=== PATIENT | male | born 1990 | race Caucasian/White ===

== ENCOUNTER 2016-12-24 03:12 | Emergency (ER) | payer BC ==
[2016-12-24] MEDS ORDERED: ACETAMINOPHEN TAB 500 MG TAB PO STA (03:22)
[2016-12-24] MEDS ORDERED: IBUPROFEN 600 MG TAB PO STA (03:22)
--- NOTE | 2016-12-24 03:25 | ED ---
General Adult HPI - General Chief complaint: Fever Stated complaint: shaky Time Seen by Provider: 12/24/16 03:19 Source: patient, EMS, RN notes reviewed Mode of arrival: EMS Limitations: no limitations - History of Present Illness Initial comments: Patient is a pleasant 26-year-old male presenting to the emergency department for feeling shaky. Onset of symptoms was just around 40 minutes ago. Patient states he just doesn't feel right. No history of similar symptoms previously. No rhinorrhea. Patient questions if he may have minimal sore throat. No cough. No abdominal pain. No dysuria. - Related Data Allergies Allergy/AdvReac Type Severity Reaction Status Date / Time No Known Allergies Allergy Verified 12/24/16 03:18 Review of Systems ROS Statement: Those systems with pertinent positive or pertinent negative responses have been documented in the HPI. ROS Other: All systems not noted in ROS Statement are negative. Constitutional: Reports: chills Eyes: Denies: eye pain ENT: Denies: ear pain Respiratory: Denies: cough Cardiovascular: Denies: chest pain Endocrine: Denies: fatigue Gastrointestinal: Denies: abdominal pain Genitourinary: Denies: urgency Musculoskeletal: Denies: back pain Skin: Denies: rash Neurological: Denies: weakness Past Medical History Past Medical History: No Reported History History of Any Multi-Drug Resistant Organisms: None Reported Past Surgical History: No Surgical Hx Reported Past Psychological History: No Psychological Hx Reported Smoking Status: Current every day smoker Past Alcohol Use History: Occasional Past Drug Use History: Marijuana General Exam Limitations: no limitations General appearance: alert, in no apparent distress Head exam: Present: atraumatic Eye exam: Present: normal appearance, PERRL ENT exam: Present: normal oropharynx Neck exam: Present: normal inspection Respiratory exam: Present: normal lung sounds bilaterally Cardiovascular Exam: Present: regular rate, normal rhythm GI/Abdominal exam: Present: soft. Absent: tenderness Extremities exam: Present: normal inspection Neurological exam: Present: alert Psychiatric exam: Present: normal affect, normal mood Skin exam: Absent: rash Course Vital Signs 12/24/16 03:15 Temperature 100.2 F H Pulse Rate 124 H Respiratory 20 Rate Blood Pressure 160/91 O2 Sat by Pulse 98 Oximetry EKG Findings - EKG Comments: EKG Findings:: Sinus tachycardia at 114. OR 178. QRS 94. QT 320. QTc 452. Normal axis. Normal QRS. No acute ST change. Medical Decision Making - Medical Decision Making Patient reexamined and resting comfortably in bed. Patient is symptom-free. Patient updated on results and need for follow-up. - Lab Data Result diagrams: 12/24/16 03:25 12/24/16 03:25 Lab Results 12/24/16 12/24/16 12/24/16 Range/Units 03:25 03:25 03:25 WBC 10.1 (3.8-10.6) k/uL RBC 4.84 (4.30-5.90) m/uL Hgb 15.3 (13.0-17.5) gm/dL Hct 42.7 (39.0-53.0) % MCV 88.2 (80.0-100.0) fL MCH 31.5 (25.0-35.0) pg MCHC 35.8 (31.0-37.0) g/dL RDW 13.3 (11.5-15.5) % Plt Count 193 (150-450) k/uL Neutrophils % 78 % Lymphocytes % 13 % Monocytes % 6 % Eosinophils % 1 % Basophils % 1 % Neutrophils # 7.8 H (1.3-7.7) k/uL Lymphocytes # 1.3 (1.0-4.8) k/uL Monocytes # 0.6 (0-1.0) k/uL Eosinophils # 0.1 (0-0.7) k/uL Basophils # 0.1 (0-0.2) k/uL PT (9.0-12.0) sec INR (<1.1) APTT (22.0-30.0) sec Sodium 138 (137-145) mmol/L Potassium 3.8 (3.5-5.1) mmol/L Chloride 104 (98-107) mmol/L Carbon Dioxide 23 (22-30) mmol/L Anion Gap 11 mmol/L BUN 16 (9-20) mg/dL Creatinine 0.90 (0.66-1.25) mg/dL Est GFR (MDRD) Af Amer >60 (>60 ml/min/1.73 sqM) Est GFR (MDRD) Non-Af >60 (>60 ml/min/1.73 sqM) Glucose 118 H (74-99) mg/dL Plasma Lactic Acid German (0.7-2.0) mmol/L Calcium 9.3 (8.4-10.2) mg/dL Total Bilirubin 0.5 (0.2-1.3) mg/dL AST 47 (17-59) U/L ALT 65 (21-72) U/L Alkaline Phosphatase 80 (38-126) U/L Total Protein 6.9 (6.3-8.2) g/dL Albumin 4.4 (3.5-5.0) g/dL Urine Color Urine Appearance (Clear) Urine pH (5.0-8.0) Ur Specific Noble (1.001-1.035) Urine Protein (Negative) Urine Glucose (UA) (Negative) Urine Ketones (Negative) Urine Blood (Negative) Urine Nitrite (Negative) Urine Bilirubin (Negative) Urine Urobilinogen (<2.0) mg/dL Ur Leukocyte Esterase (Negative) Urine Opiates Screen (NotDetected) Ur Oxycodone Screen (NotDetected) Urine Methadone Screen (NotDetected) Ur Propoxyphene Screen (NotDetected) Ur Barbiturates Screen (NotDetected) U Tricyclic Antidepress (NotDetected) Ur Phencyclidine Scrn (NotDetected) Ur Amphetamines Screen (NotDetected) U Methamphetamines Scrn (NotDetected) U Benzodiazepines Scrn (NotDetected) Urine Cocaine Screen (NotDetected) U Marijuana (THC) Screen (NotDetected) Influenza Type A RNA Not Detected (Not Detectd) Influenza Type B (PCR) Not Detected (Not Detectd) Group A Strep Rapid (Negative) 12/24/16 12/24/16 12/24/16 Range/Units 03:25 03:25 03:25 WBC (3.8-10.6) k/uL RBC (4.30-5.90) m/uL Hgb (13.0-17.5) gm/dL Hct (39.0-53.0) % MCV (80.0-100.0) fL MCH (25.0-35.0) pg MCHC (31.0-37.0) g/dL RDW (11.5-15.5) % Plt Count (150-450) k/uL Neutrophils % % Lymphocytes % % Monocytes % % Eosinophils % % Basophils % % Neutrophils # (1.3-7.7) k/uL Lymphocytes # (1.0-4.8) k/uL Monocytes # (0-1.0) k/uL Eosinophils # (0-0.7) k/uL Basophils # (0-0.2) k/uL PT 10.8 (9.0-12.0) sec INR 1.1 (<1.1) APTT 22.2 (22.0-30.0) sec Sodium (137-145) mmol/L Potassium (3.5-5.1) mmol/L Chloride (98-107) mmol/L Carbon Dioxide (22-30) mmol/L Anion Gap mmol/L BUN (9-20) mg/dL Creatinine (0.66-1.25) mg/dL Est GFR (MDRD) Af Amer (>60 ml/min/1.73 sqM) Est GFR (MDRD) Non-Af (>60 ml/min/1.73 sqM) Glucose (74-99) mg/dL Plasma Lactic Acid German 1.8 (0.7-2.0) mmol/L Calcium (8.4-10.2) mg/dL Total Bilirubin (0.2-1.3) mg/dL AST (17-59) U/L ALT (21-72) U/L Alkaline Phosphatase (38-126) U/L Total Protein (6.3-8.2) g/dL Albumin (3.5-5.0) g/dL Urine Color Urine Appearance (Clear) Urine pH (5.0-8.0) Ur Specific Noble (1.001-1.035) Urine Protein (Negative) Urine Glucose (UA) (Negative) Urine Ketones (Negative) Urine Blood (Negative) Urine Nitrite (Negative) Urine Bilirubin (Negative) Urine Urobilinogen (<2.0) mg/dL Ur Leukocyte Esterase (Negative) Urine Opiates Screen (NotDetected) Ur Oxycodone Screen (NotDetected) Urine Methadone Screen (NotDetected) Ur Propoxyphene Screen (NotDetected) Ur Barbiturates Screen (NotDetected) U Tricyclic Antidepress (NotDetected) Ur Phencyclidine Scrn (NotDetected) Ur Amphetamines Screen (NotDetected) U Methamphetamines Scrn (NotDetected) U Benzodiazepines Scrn (NotDetected) Urine Cocaine Screen (NotDetected) U Marijuana (THC) Screen (NotDetected) Influenza Type A RNA (Not Detectd) Influenza Type B (PCR) (Not Detectd) Group A Strep Rapid Negative (Negative) 12/24/16 Range/Units 03:36 WBC (3.8-10.6) k/uL RBC (4.30-5.90) m/uL Hgb (13.0-17.5) gm/dL Hct (39.0-53.0) % MCV (80.0-100.0) fL MCH (25.0-35.0) pg MCHC (31.0-37.0) g/dL RDW (11.5-15.5) % Plt Count (150-450) k/uL Neutrophils % % Lymphocytes % % Monocytes % % Eosinophils % % Basophils % % Neutrophils # (1.3-7.7) k/uL Lymphocytes # (1.0-4.8) k/uL Monocytes # (0-1.0) k/uL Eosinophils # (0-0.7) k/uL Basophils # (0-0.2) k/uL PT (9.0-12.0) sec INR (<1.1) APTT (22.0-30.0) sec Sodium (137-145) mmol/L Potassium (3.5-5.1) mmol/L Chloride (98-107) mmol/L Carbon Dioxide (22-30) mmol/L Anion Gap mmol/L BUN (9-20) mg/dL Creatinine (0.66-1.25) mg/dL Est GFR (MDRD) Af Amer (>60 ml/min/1.73 sqM) Est GFR (MDRD) Non-Af (>60 ml/min/1.73 sqM) Glucose (74-99) mg/dL Plasma Lactic Acid German (0.7-2.0) mmol/L Calcium (8.4-10.2) mg/dL Total Bilirubin (0.2-1.3) mg/dL AST (17-59) U/L ALT (21-72) U/L Alkaline Phosphatase (38-126) U/L Total Protein (6.3-8.2) g/dL Albumin (3.5-5.0) g/dL Urine Color Yellow Urine Appearance Clear (Clear) Urine pH 6.5 (5.0-8.0) Ur Specific Noble 1.015 (1.001-1.035) Urine Protein Negative (Negative) Urine Glucose (UA) Negative (Negative) Urine Ketones Negative (Negative) Urine Blood Negative (Negative) Urine Nitrite Negative (Negative) Urine Bilirubin Negative (Negative) Urine Urobilinogen <2.0 (<2.0) mg/dL Ur Leukocyte Esterase Negative (Negative) Urine Opiates Screen Not Detected (NotDetected) Ur Oxycodone Screen Not Detected (NotDetected) Urine Methadone Screen Not Detected (NotDetected) Ur Propoxyphene Screen Not Detected (NotDetected) Ur Barbiturates Screen Not Detected (NotDetected) U Tricyclic Antidepress Not Detected (NotDetected) Ur Phencyclidine Scrn Not Detected (NotDetected) Ur Amphetamines Screen Not Detected (NotDetected) U Methamphetamines Scrn Not Detected (NotDetected) U Benzodiazepines Scrn Not Detected (NotDetected) Urine Cocaine Screen Not Detected (NotDetected) U Marijuana (THC) Screen Detected H (NotDetected) Influenza Type A RNA (Not Detectd) Influenza Type B (PCR) (Not Detectd) Group A Strep Rapid (Negative) - Radiology Data Radiology results: image reviewed (Chest x-ray shows no acute abnormality) Disposition Clinical Impression: Fever Disposition: HOME SELF-CARE Condition: Stable Instructions: Fever in Adults (ED) Additional Instructions: [id number] Tylenol or Motrin as needed. Please follow-up to primary care physician in the next couple of days for recheck. Return for uncontrolled fever , difficulty breathing, pain, worsening symptoms or other concerns. Referrals: Naveen Champion DO [Primary Care Provider] - 1-2 days
[2016-12-24] MEDS ORDERED: SODIUM CHLORIDE 0.9% 500 ML IV SCH (03:30)
[2016-12-24 03:38] LABS: Basophils # (A) 0.1 k/uL (0-0.2); Basophils % (A) 1 %; CH 32.5; Eosinophils # (A) 0.1 k/uL (0-0.7); Eosinophils % (A) 1 %; HCT 42.7 % (39.0-53.0); HDW 2.67; HGB 15.3 gm/dL (13.0-17.5); Luc % (Auto) 2; Lymphocytes # (A) 1.3 k/uL (1.0-4.8); Lymphocytes % (A) 13 %; MCH 31.5 pg (25.0-35.0); MCHC 35.8 g/dL (31.0-37.0); MCV 88.2 fL (80.0-100.0); Mean Platelet Volume 7.1; Monocytes # (A) 0.6 k/uL (0-1.0); Monocytes % (A) 6 %; Neutrophils # (A) 7.8 k/uL (1.3-7.7); Neutrophils % (A) 78 %; RBC 4.84 m/uL (4.30-5.90); RDW 13.3 % (11.5-15.5); WBC 10.1 k/uL (3.8-10.6); WBC (Perox) 9.83
[2016-12-24 03:46] LABS: INR 1.1 (<1.1); Partial Thromboplastin Time 22.2 sec (22.0-30.0); Prothrombin Time 10.8 sec (9.0-12.0)
[2016-12-24 03:47] LABS: ALT 65 U/L (21-72); AST 47 U/L (17-59); Alkaline Phosphatase 80 U/L (38-126); Anion Gap 11 mmol/L; Blood Urea Nitrogen 16 mg/dL (9-20); Calcium 9.3 mg/dL (8.4-10.2); Carbon Dioxide 23 mmol/L (22-30); Chloride 104 mmol/L (98-107); Glucose 118 mg/dL (74-99); Non-African American GFR(MDRD) >60 (>60 ml/min/1.73 sqM); Potassium 3.8 mmol/L (3.5-5.1); Sodium 138 mmol/L (137-145); Total Bilirubin 0.5 mg/dL (0.2-1.3); Total Protein 6.9 g/dL (6.3-8.2)
[2016-12-24 03:51] LABS: Appearance,Urine Clear (Clear); Bilirubin,Urine Negative (Negative); Glucose,Urine (UA) Negative (Negative); Ketones,Urine Negative (Negative); Leukocyte Esterase,Urine Negative (Negative); Nitrite,Urine Negative (Negative); PH, Urine 6.5 (5.0-8.0); Protein,Urine Negative (Negative); Specific Gravity,Urine 1.015 (1.001-1.035); UA Billing (MACRO vs. MICRO) CHEM; Urobilinogen,Urine <2.0 mg/dL (<2.0)
--- NOTE | 2016-12-24 03:57 | XR ---
EXAM: XR Chest, 2 Views. CLINICAL HISTORY: Reason: Fever TECHNIQUE: Frontal and lateral views of the chest. COMPARISON: No relevant prior studies available. FINDINGS: Lungs: No airspace consolidation. Pleural space: No significant pleural effusion. No pneumothorax. Heart: Normal cardiac silhouette. Bones/joints: Unremarkable as visualized. IMPRESSION: No abnormality detected.
[2016-12-24 04:39] VITALS: BP 148/79; PULSE 103; RESP 18; TEMP 98.1
== END 2016-12-24 04:39 | disposition home or self-care (01) ==
LOC: EC 03:12
DX: R50.9 Fever, unspecified (principal); R25.8 Other abnormal involuntary movements; F17.200 Nicotine dependence, unspecified, uncomplicated
CPT/HCPCS: 36415; 71020; 80053; 80306; 81003; 83605; 85025; 85610; 85730; 87040; 87081; 87086; 87430; 87502; 93005; 96360; 99284

== ENCOUNTER 2018-10-31 02:43 | Emergency (ER) | payer BC ==
[2018-10-31 02:46] VITALS: RESP 20
--- NOTE | 2018-10-31 06:43 | ED ---
Alcohol HPI - General Chief Complaint: Alcohol Stated Complaint: ETOH Time Seen by Provider: 10/31/18 03:10 Source: patient, police, EMS Mode of arrival: ambulatory Limitations: no limitations - History of Present Illness Initial Comments: This patient is a 28-year-old man brought to the emergency department after he was observed in public appearing to be very intoxicated. The patient is denying any complaints. Denies any recent head injury. He does admit to drinking a lot of alcohol tonight. Complaint: alcohol intoxication Last Drink: just [employer] Previous Visits for Alcohol Intoxication?: No Recent Trauma: No Associated Symptoms: denies other symptoms - Related Data Allergies Allergy/AdvReac Type Severity Reaction Status Date / Time No Known Allergies Allergy Verified 10/31/18 02:46 Review of Systems ROS Statement: Those systems with pertinent positive or pertinent negative responses have been documented in the HPI. ROS Other: All systems not noted in ROS Statement are negative. Eyes: Denies: vision change Respiratory: Denies: cough, dyspnea Cardiovascular: Denies: chest pain Gastrointestinal: Denies: abdominal pain Neurological: Denies: headache Past Medical History Past Medical History: No Reported History History of Any Multi-Drug Resistant Organisms: None Reported Past Surgical History: No Surgical Hx Reported Past Psychological History: No Psychological Hx Reported Smoking Status: Current every day smoker Past Alcohol Use History: Heavy Past Drug Use History: Marijuana General Exam Limitations: no limitations General appearance: alert, appears intoxicated Head exam: Present: atraumatic, normocephalic Eye exam: Present: normal appearance, nystagmus. Absent: scleral icterus, conjunctival injection Respiratory exam: Present: normal lung sounds bilaterally. Absent: respiratory distress, wheezes, rales, rhonchi, stridor Cardiovascular Exam: Present: regular rate, normal rhythm, normal heart sounds GI/Abdominal exam: Present: soft. Absent: tenderness, guarding, rebound Extremities exam: Present: normal inspection, normal capillary refill. Absent: pedal edema, calf tenderness Back exam: Present: normal inspection. Absent: vertebral tenderness Neurological exam: Present: alert, CN II-XII intact. Absent: motor sensory deficit Skin exam: Present: warm, dry, intact, normal color. Absent: rash Course Vital Signs 10/31/18 10/31/18 02:44 06:46 Temperature 98.6 F 98.1 F Pulse Rate 111 H 95 Respiratory 20 20 Rate Blood Pressure 156/100 148/90 O2 Sat by Pulse 98 98 Oximetry Disposition Clinical Impression: Alcoholic intoxication Disposition: HOME SELF-CARE Condition: Fair Instructions (If sedation given, give patient instructions): Alcohol Intoxication (ED) Is patient prescribed a controlled substance at d/c from ED?: No Referrals: Naveen Champion DO [Primary Care Provider] - 1-2 days
[2018-10-31 06:47] VITALS: BP 148/90; PULSE 95; TEMP 98.1
--- NOTE | 2018-11-02 03:40 | CDI ---
Documentation Clarification OP Dear Dr. Yuliana Busch Please do addendum to ED report for missing HPI and Physical examination. Thank you, Deidre Welch Javascript Programmer If you have any questions, please contact Electrical Intern at [phone] [facility]
== END 2018-10-31 06:47 | disposition home or self-care (01) ==
LOC: EC 02:43
DX: F10.129 Alcohol abuse with intoxication, unspecified (principal); F17.200 Nicotine dependence, unspecified, uncomplicated
CPT/HCPCS: 82075; 99284

== ENCOUNTER 2023-07-17 14:10 | Emergency (ER) | payer BC ==
[2023-07-17 14:41] VITALS: RESP 18; TEMP 98.8
--- NOTE | 2023-07-17 15:13 | ED ---
Anxiety HPI - General Chief Complaint: Anxiety Stated Complaint: MENTAL HEALTH Time Seen by Provider: 07/17/23 14:28 Source: patient, EMS, RN notes reviewed Mode of arrival: EMS Limitations: no limitations - History of Present Illness Initial Comments: This is a 32-year-old male who presents to the emergency department for anxiety. Patient states that he smoked marijuana and ate an edible today. Afterwards he started sweating and hyperventilating. He has had marijuana many times before and has never experienced a reaction like this. Unsure if this may have been laced with another substance. He is on Lexapro and does note going through several recent life stressors and inquired about finding a counselor. He was given Versed by EMS as well as 500 mL of IV fluids and symptoms have essentially resolved at this point. Denies any suicidal or homicidal ideations. MD Complaint: anxiety - Related Data Home Medications: Home Medications Medication Instructions Recorded Confirmed Escitalopram [Lexapro] 10 mg PO PC-LUNCH 07/17/23 07/17/23 Allergies/Adverse Reactions: Allergies Allergy/AdvReac Type Severity Reaction Status Date / Time No Known Allergies Allergy Verified 07/17/23 16:18 Review of Systems ROS Statement: Those systems with pertinent positive or pertinent negative responses have been documented in the HPI. ROS Other: All systems not noted in ROS Statement are negative. Past Medical History Past Medical History: No Reported History History of Any Multi-Drug Resistant Organisms: None Reported Past Surgical History: No Surgical Hx Reported Past Psychological History: No Psychological Hx Reported Past Alcohol Use History: Heavy Past Drug Use History: Marijuana General Exam Limitations: no limitations General appearance: alert, in no apparent distress Head exam: Present: atraumatic, normocephalic, normal inspection Respiratory exam: Present: normal lung sounds bilaterally. Absent: respiratory distress, wheezes, rales, rhonchi, stridor Cardiovascular Exam: Present: regular rate, normal rhythm, normal heart sounds. Absent: systolic murmur, diastolic murmur, rubs, gallop, clicks Neurological exam: Present: alert, oriented X3, CN II-XII intact Psychiatric exam: Present: normal affect, normal mood Skin exam: Present: warm, dry, intact, normal color. Absent: rash Course Vital Signs 07/17/23 07/17/23 14:31 15:39 Temperature 98.8 F Pulse Rate 93 80 Respiratory 18 18 Rate Blood Pressure 117/76 112/76 O2 Sat by Pulse 96 96 Oximetry Medical Decision Making - Medical Decision Making This is a 32-year-old male who presents to the emergency department for anxiety. Was pt. sent in by a medical professional or institution? @ -No Did you speak to anyone other than the patient for history? @ -No Did you review nursing and triage notes? @ -Yes, and I agree, it is accurate with regards to the patient's symptoms. Were old charts reviewed? @ -No Differential Diagnosis? @ -Differential Mental Health: Depression, anxiety, bipolar, psychosis, schizophrenia, borderline personality, situational depression, adjustment disorder, behavioral disorder, brain tumor, malingering, substance abuse, encephalopathy, medication reaction, dementia, hypothyroidism, degenerative neurologic disorder, lupus.... This is not meant to be all-inclusive list EKG interpreted by me (3pts min.)? @ -Not obtained X-rays interpreted by me (1pt min.)? @ -Not obtained CT interpreted by me (1pt min.)? @ -Not obtained U/S interpreted by me (1pt. min.)? @ -Not obtained What testing was considered but not performed? (CT, X-rays, U/S, labs)? Why? @ -None What meds were considered but not given? Why? @ -None Did you discuss the management of the patient with other professionals? @ -No Did you reconcile home meds? @ -No Was smoking cessation discussed for >3mins.? @ -No Was critical care preformed (if so, how long)? @ -No Were there social determinants of health that impacted care today? How? (Homelessness, low income, unemployed, alcoholism, drug addiction, transportation, low edu. Level, literacy, decrease access to med. care, care home, rehab)? @ -Marijuana use, leading to the patient's visit today. Was there de-escalation of care discussed even if they declined? (Discuss DNR or withdrawal of care, Hospice)? @ -No What co-morbidities impacted this encounter? (DM, HTN, Smoking, COPD, CAD, Cancer, CVA, Hep., AIDS, mental health diagnosis, sleep apnea, morbid obesity)? @ -Anxiety, depression Was patient admitted / discharged? @ -Discharged. By the time I evaluated the patient, his symptoms had resolved. He had received Versed and IV fluids by EMS. I did offer to let the patient speak with EPS, however he declined. I did also offer to provide him with outpatient counseling resources, which he was agreeable to and those were provided. Given the circumstances and because the patient is not suicidal or homicidal and because symptoms have resolved, I do not feel an EPS evaluation is necessary. We did do a urine drug screen to see if there were any other substances in the marijuana, however this only picked up on marijuana. Patient discharged home in stable condition. Undiagnosed new problem with uncertain prognosis? @ -None Drug Therapy requiring intensive monitoring for toxicity (Heparin, Nitro, Insulin, Cardizem)? @ -None Were any procedures done? @ -None Diagnosis/symptom? @ -Panic attack Acute, or Chronic, or Acute on Chronic? @ -Acute Uncomplicated (without systemic symptoms) or Complicated (systemic symptoms)? @ -Uncomplicated Side effects of treatment? @ -None Exacerbation, Progression, or Severe Exacerbation] @ -Not applicable Poses a threat to life or bodily function? @ -No Return precautions reviewed in depth, the patient is instructed to return to the emergency department with any new, worsening, or concerning symptoms. Patient verbalized understanding. This case was discussed in detail with the attending ED physician, Dr. Bridges. Presentation, findings, and treatment plan discussed in detail as well. - Lab Data Lab Results 07/17/23 Range/Units 15:18 Urine Opiates Screen Not Detected (NotDetected) Ur Oxycodone Screen Not Detected (NotDetected) Urine Methadone Screen Not Detected (NotDetected) Ur Propoxyphene Screen Not Detected (NotDetected) Ur Barbiturates Screen Not Detected (NotDetected) U Tricyclic Antidepress Not Detected (NotDetected) Ur Phencyclidine Scrn Not Detected (NotDetected) Ur Amphetamines Screen Not Detected (NotDetected) U Methamphetamines Scrn Not Detected (NotDetected) U Benzodiazepines Scrn Not Detected (NotDetected) Urine Cocaine Screen Not Detected (NotDetected) U Marijuana (THC) Screen Detected H (NotDetected) Disposition Clinical Impression: Panic attack, Marijuana use Disposition: HOME SELF-CARE Instructions (If sedation given, give patient instructions): Generalized Anxiety Disorder (ED) Additional Instructions: Return to the emergency department with any new, worsening, or concerning symptoms. You can contact the local counseling offices provided in the information below to become established for ongoing care. Follow up with your primary care provider in 1-2 days. Is patient prescribed a controlled substance at d/c from ED?: No Referrals: Eran Prabhakar MD [Primary Care Provider] - 1-2 days Forms: Outpatient Counseling
[2023-07-17 15:44] VITALS: BP 112/76; PULSE 80
[2023-07-17 17:03] LABS: Cocaine Screen,Urine Not Detected (NotDetected); Phencyclidine Screen,Urine Not Detected (NotDetected); Urn Cannabinoid Scrn Detected (NotDetected)
[2023-07-17 17:04] LABS: Amphetamine Screen,Urine Not Detected (NotDetected); Barbiturate Screen,Urine Not Detected (NotDetected); Benzodiazepines Screen,Urine Not Detected (NotDetected); Methadone Screen, Urine Not Detected (NotDetected); Opiate Screen,Urine Not Detected (NotDetected); Oxycodone Screen, Urine Not Detected (NotDetected); Tricyclic Antidepressant,Urine Not Detected (NotDetected)
== END 2023-07-17 15:46 | disposition home or self-care (01) ==
LOC: EC 14:10
DX: F41.0 Panic disorder [episodic paroxysmal anxiety] (principal); F12.90 Cannabis use, unspecified, uncomplicated
CPT/HCPCS: 80306; 99283